=== PATIENT | female | born 1990 | race Caucasian/White ===

== ENCOUNTER → 2017-09-27 12:52 | Outpatient (CLI) | payer SELFPAY ==
[2017-09-27 13:17] LABS: Protein, Urine (Random) 7.1 mg/dL (<11.9); Protein:Creat Ratio 267 mg/g CRE (0-200)
== END ==
PROVIDERS: Visit Provider Obstetrics & Gynecology
DX: O16.9 Unspecified maternal hypertension, unspecified trimester (principal); Z3A.00 Weeks of gestation of pregnancy not specified
CPT/HCPCS: 82570; 84156